=== PATIENT | male | born 1960 | race Caucasian/White ===

== ENCOUNTER 2019-08-30 10:32 | Emergency (ER) | payer BC ==
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
[2019-08-30 11:12] VITALS: BP 147/94; PULSE 78
== END 2019-08-30 11:28 | disposition home or self-care (01) ==
LOC: JD.ED 10:32
DX: L24.1 Irritant contact dermatitis due to oils and greases (principal); L03.211 Cellulitis of face; J45.909 Unspecified asthma, uncomplicated; Z91.048 Other nonmedicinal substance allergy status; Z79.899 Other long term (current) drug therapy
CPT/HCPCS: 99282; 99283

== ENCOUNTER 2019-09-01 05:36 | Emergency (ER) | payer BC ==
[2019-09-01 05:50] VITALS: BP 130/84; PULSE 50
[2019-09-01] MEDS ORDERED: Ondansetron 4 MG/2 ML SDV IVPUSH ONE (06:09)
[2019-09-01] MEDS ORDERED: Sodium Chloride 0.9% 1,000 ML IV SCH (06:15)
[2019-09-01] MEDS ORDERED: cefTRIAXone 2 GM in Sodium Chloride 0.9% 100 ML IV ONE (06:26)
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
== END 2019-09-01 07:45 | disposition home or self-care (01) ==
LOC: JD.ED 05:36
DX: T57 Toxic effect of other inorganic substances (principal); T20.44XA Corrosion of unspecified degree of nose (septum), initial encounter; L03.211 Cellulitis of face; J45.909 Unspecified asthma, uncomplicated; Z91.048 Other nonmedicinal substance allergy status; Z79.899 Other long term (current) drug therapy
CPT/HCPCS: 36415; 85025; 86140; 96365; 96375; 99283; J0696; J2405; J7030; J7050